=== PATIENT | male | born 1995 | race African-American/Black ===

== ENCOUNTER 2016-10-23 09:33 | Emergency (ER) | payer OTHER ==
[2016-10-23 09:38] VITALS: TEMP 98.1; BMI 31.6
--- NOTE | 2016-10-23 10:41 | PDOC ---
History of Present Illness - General Chief Complaint: Rectal Bleed Stated Complaint: blood in stool Time Seen by Provider: 10/23/16 09:43 History Source: Patient Exam Limitations: No Limitations - History of Present Illness Travel History: No Initial Comments: 10/23/16 10:00 21-year-old male presents to the ED with complaints of blood tinged stool this morning after defecation. Patient also complained of mild right upper quadrant cramping associated after the bowel movement but states pain has subsided. Patient denies history of hemorrhoids, GI disorders, abdominal distention, recent constipation, rectal penetration, weakness, or fever. Timing/Duration: reports: resolved prior to arrival Quality: reports: mild, cramping Abdominal Pain Onset Location: reports: RUQ Pain Radiation: reports: no radiation Activities at Onset: reports: none Aggravating Factors: improves with: Defecation Past History - Past Medical History Allergies/Adverse Reactions: Allergies Allergy/AdvReac Type Severity Reaction Status Date / Time No Known Allergies Allergy Verified 10/23/16 09:38 Home Medications: Ambulatory Orders NK [No Known Home Medication] 10/23/16 Other medical history: denies - Psycho/Social/Smoking Cessation Hx Suicidal Ideation: No Smoking History: Never smoked Information on smoking cessation initiated: No Hx Alcohol Use: No Drug/Substance Use Hx: No Substance Use Type: None Patient Lives Alone: No Lives with/in: parents Review of Systems - Review of Systems Able to Perform ROS?: Yes Constitutional: No: Symptoms Reported HEENTM: No: Symptoms Reported Respiratory: No: Symptoms reported Cardiac (ROS): No: Symptoms Reported ABD/GI: Yes: Blood Streaked Bowels, Abdominal cramping. No: Nausea : No: Symptoms Reported Musculoskeletal: No: Symptoms Reported Integumentary: No: Symptoms Reported Neurological: No: Symptoms reported Endocrine: No: Symptoms Reported Hematologic/Lymphatic: No: Symptoms Reported *Physical Exam - Vital Signs Last Vital Signs Temp Pulse Resp BP Pulse Ox 98.1 F 69 18 169/101 98 10/23/16 09:36 10/23/16 09:36 10/23/16 09:36 10/23/16 09:36 10/23/16 09:36 - Physical Exam General Appearance: Yes: Nourished, Appropriately Dressed. No: Apparent Distress HEENT: negative: Pale Conjunctivae Respiratory/Chest: positive: Lungs Clear, Normal Breath Sounds. negative: Respiratory Distress, Accessory Muscle Use Cardiovascular: positive: Regular Rhythm, Regular Rate. negative: Murmur Gastrointestinal/Abdominal: positive: Normal Bowel Sounds, Soft. negative: Distended, Tenderness Male Genitalia: positive: normal genitalia (uncircumcised). negative: testicular tenderness, epididymus tender Rectal Exam: positive: heme negative stool (brown stool on visual exam. Specimen sent for testing), normal rectal tone. negative: hemorrhoids Musculoskeletal: negative: CVA Tenderness Integumentary: positive: Normal Color, Warm, Moist Neurologic: positive: Motor Strength 5/5 ( ambulatory) ED Treatment Course - LABORATORY CBC & Chemistry Diagram: 10/23/16 10:22 10/23/16 10:22 Medical Decision Making - Medical Decision Making 10/23/16 10:12 Patient here with complaints of blood-streaked stool this morning with mild right upper quadrant cramping that subsided minutes after the bowel movement. Patient had no Acute findings but ordered for labs including CBC, comp, UA and stool for guaiac testing. 10/23/16 11:52 Laboratory Tests 10/23/16 10/23/16 10:22 10:22 Sodium 140 Potassium 4.3 Chloride 102 Carbon Dioxide 29 Anion Gap 9 BUN 12 Creatinine 1.0 Creat Clearance w eGFR > 60 Random Glucose 95 Calcium 9.6 Total Bilirubin 2.1 H AST 66 H ALT 59 Alkaline Phosphatase 48 Total Protein 8.5 H Albumin 5.1 H Urine Protein 1+ H Urine Ketones Trace H Urine Blood Negative Urine Nitrite Negative Ur Leukocyte Esterase Negative Urine RBC None Urine WBC 2 Stool Occult Blood Negative Although patient has no significant findings on exam and lab work. Patient will be given referral to driller's assistant if symptoms are to recur otherwise he may also follow-up with his PCP. *DC/Admit/Observation/Transfer Diagnosis at time of Disposition: Rectal hemorrhage - Discharge Dispostion Disposition: HOME Condition at time of disposition: Good - Referrals Referrals: Kota Carey MD [Primary Care Provider] - Edmund Morris MD [Staff Physician] - - Patient Instructions Printed Discharge Instructions: DI for Rectal Bleeding Additional Instructions: I recommend that you observe which are eating in regards to the color appears stool. I also recommend that you follow up with referred driller's assistant if symptoms recur. I otherwise recommend you follow up with your primary care physician in regards to elevated blood pressure noted here in the ER today.
[2016-10-23 10:49] LABS: EOSINOPHIL 1.3 % (0-4.5); MCH 28.4 pg (25.7-33.7); MCHC 32.8 g/dl (32.0-35.9); MEAN CELL VOLUME 86.5 fl (80-96); MEAN PLT VOLUME 8.5 fl (7.5-11.1); PLATELET COUNT 283 K/MM3 (134-434); RDW 13.7 % (11.9-15.9); WHITE BLOOD COUNT 6.9 K/mm3 (4.0-10.0)
[2016-10-23 11:14] LABS: ALBUMIN 5.1 g/dl (3.4-5.0); ANION GAP 9 (8-16); CALCIUM 9.6 mg/dL (8.5-10.1); CO2 29 mmol/L (21-32); GLUCOSE,RANDOM 95 mg/dL (74-106); STOOL FOR OCCULT BLOOD NEGATIVE (NEGATIVE)
[2016-10-23 11:16] LABS: URINE APPEARANCE CLEAR; URINE BILIRUBIN NEGATIVE (NEGATIVE); URINE BLOOD NEGATIVE (NEGATIVE); URINE COLOR YELLOW; URINE GLUCOSE (UA) NEGATIVE (NEGATIVE); URINE KETONE TRACE (NEGATIVE); URINE LEUK ESTERASE NEGATIVE (NEGATIVE); URINE NITRITE NEGATIVE (NEGATIVE); URINE UROBILINOGEN 2.0 E.U/dl E.U./dl (0.2-1.0)
[2016-10-23 11:18] LABS: ALK PHOS 48 U/L (45-117); BILIRUBIN,TOTAL 2.1 mg/dL (0.2-1.0); SGOT/AST 66 U/L (15-37); SGPT/ALT 59 U/L (12-78); TOT PROT 8.5 g/dl (6.4-8.2)
[2016-10-23 11:24] VITALS: BP 160/90; PULSE 72
[2016-10-23 11:28] LABS: URINE PROTEIN 1+ (NEGATIVE)
[2016-10-23 11:30] LABS: URINE MUCUS RARE; URINE WBC 2 /hpf (3-5)
== END 2016-10-23 12:09 | disposition home or self-care (01) ==
LOC: JER 09:33
DX: K62.5 Hemorrhage of anus and rectum (principal)
CPT/HCPCS: 36415; 80053; 81003; 81015; 82272; 85025; 99283-25

== ENCOUNTER 2024-09-13 01:06 | Emergency (ER) | payer SELFPAY ==
[2024-09-13 01:24] VITALS: TEMP 98.8; BMI 38.5
[2024-09-13] MEDS ORDERED: ACETAMINOPHEN 500 MG TABLET (FP) ONE (02:06)
[2024-09-13] MEDS ORDERED: FAMOTIDINE 20 MG TABLET ONE (02:06)
[2024-09-13 02:10] VITALS: PULSE 90; RESP 18
[2024-09-13] MEDS: ACETAMINOPHEN 500 MG TABLET (FP) PO ONE (02:18)
[2024-09-13] MEDS: FAMOTIDINE 20 MG TABLET PO ONE (02:18)
[2024-09-13] MEDS ORDERED: SIMETHICONE 80 MG TAB.CHEW (FP) ONE (02:25)
[2024-09-13] MEDS: SIMETHICONE 40 MG/0.6 ML BOTTLE PO ONE (02:34)
[2024-09-13] MEDS: SODIUM CHLORIDE 0.9% 500 ML INFUS.BAG IV ONE (02:34)
[2024-09-13 02:38] LABS: BASO % 0.6 % (0-2.0); EOS % 2.4 % (0-4.5); HEMATOCRIT 37.7 % (35.4-49); HEMOGLOBIN 12.2 GM/dL (11.7-16.9); LYMPH % 33.4 % (8-40); MCH 26.5 pg (25.7-33.7); MCHC 32.3 g/dl (32.0-35.9); MEAN PLT VOLUME 8.1 fl (7.5-11.1); MONO % 6.6 % (3.8-10.2); PLATELET COUNT 303 10^3/uL (134-434); RDW 15.6 % (11.9-15.9); WHITE BLOOD COUNT 7.2 K/mm3 (4.0-10.0)
[2024-09-13 03:04] LABS: POTASSIUM 4.3 mmol/L (3.5-5.1)
[2024-09-13 03:06] LABS: CALCIUM 9.5 mg/dL (8.5-10.1)
[2024-09-13 03:07] LABS: ALBUMIN 4.3 g/dl (3.4-5.0); BLOOD UREA NITROGEN 10.9 mg/dL (7-18)
[2024-09-13 03:09] LABS: CREATININE 1.2 mg/dL (0.55-1.3)
[2024-09-13 03:11] LABS: BILIRUBIN,TOTAL 0.4 mg/dL (0.2-1); TOT PROT 7.8 g/dl (6.4-8.2)
[2024-09-13] MEDS ORDERED: MAG HYDROX/AL HYDROX/SIMETH 30 ML UNIT-DOSE CUP ONE (03:56)
[2024-09-13] MEDS: MAG HYDROX/AL HYDROX/SIMETH 30 ML UNIT-DOSE CUP PO ONE (03:57)
[2024-09-13 04:47] VITALS: BP 131/67
== END 2024-09-13 05:34 | disposition home or self-care (01) ==
LOC: JER 01:06
DX: R10.13 Epigastric pain (principal); R55 Syncope and collapse; R07.89 Other chest pain; R11.10 Vomiting, unspecified; R42 Dizziness and giddiness
CPT/HCPCS: 36415; 71046-TC-FY; 80053; 83690; 84484; 85025; 93005; 93010; 99285-25

== ENCOUNTER 2025-01-25 12:17 | Emergency (ER) | payer SELFPAY ==
[2025-01-25 12:25] VITALS: BP 165/98; RESP 18; TEMP 97.7; BMI 39.8
[2025-01-25] MEDS ORDERED: KETOROLAC TROMETHAMINE 30 MG/1 ML VIAL ONE (14:15)
[2025-01-25] MEDS: KETOROLAC TROMETHAMINE 30 MG/1 ML VIAL IVPUSH ONE (14:22)
[2025-01-25 14:25] LABS: ABSOLUTE IMMATURE GRANULOCYTES 0.04 x10^3/uL (0.0-0.031); BASOPHILS # 0.08 x10^3/uL (0.01-0.08); EOSINOPHIL % 2.1 % (0.8-7.0); EOSINOPHILS # 0.17 x10^3/uL (0.04-0.54); MCHC 31.2 g/dl (32.3-36.5); MEAN CELL VOLUME 82.6 fl (79.0-92.2); MEAN PLT VOLUME 10.0 fl (9.4-12.4); MONOCYTE # 0.65 x10^3/uL (0.30-0.82); MONOCYTE % 7.9 % (5.3-12.2); RDW 15.1 % (11.9-15.3)
[2025-01-25 14:46] LABS: CO2 28.0 mmol/L (21-32); GLUCOSE,RANDOM 112.0 mg/dL (74-106)
[2025-01-25 14:49] LABS: CREATININE 0.9 mg/dL (0.55-1.3); SGOT/AST 42.0 U/L (15-37); SGPT/ALT 52.0 U/L (13-61)
[2025-01-25 14:51] LABS: TOT PROT 7.9 g/dl (6.4-8.2)
[2025-01-25 14:52] LABS: ALK PHOS 51.0 U/L (45-117)
[2025-01-25 15:38] LABS: HCV DIAGNOSTIC IN-HOUSE W/RFLX NON-REACTIVE (NONREACTIVE); HIV INTERPRETATION NEGATIVE (NEGATIVE)
[2025-01-25] MEDS ORDERED: AMOX TR/POT CLAV 875MG/125MG TABLETS (FP) ONE (17:20)
[2025-01-25] MEDS: AMOX TR/POT CLAV 875MG/125MG TABLETS (FP) PO ONE (17:25)
[2025-01-25 17:31] VITALS: PULSE 90
== END 2025-01-25 17:31 | disposition home or self-care (01) ==
LOC: JER 12:17
PROC: 3E0333Z Introduction of Anti-inflammatory into Peripheral Vein, Percutaneous Approach (ICD-10-PCS; principal; 2025-01-25)
DX: R22.0 Localized swelling, mass and lump, head (principal); R68.84 Jaw pain; K02.9 Dental caries, unspecified; R59.0 Localized enlarged lymph nodes; K12.2 Cellulitis and abscess of mouth; K04.7 Periapical abscess without sinus
CPT/HCPCS: 36415; 70487-TC; 80053; 85025; 86803; 87389; 99285-25; Q9967